=== PATIENT | female | born 1985 | race American Indian/Alaskan Native ===

== ENCOUNTER 2019-03-29 14:03 | Emergency (ER) | payer SELFPAY ==
[2019-03-29 17:47] VITALS: BP 142/92
[2019-03-29] MEDS ORDERED: NORCO 5/325 PO ONE (19:41)
[2019-03-29] MEDS ORDERED: BENADRYL PO ONE (19:42)
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
== END 2019-03-29 21:33 | disposition home or self-care (01) ==
LOC: ED 14:03
DX: H11.32 Conjunctival hemorrhage, left eye (principal); Z79.899 Other long term (current) drug therapy; Y04.0XXA Assault by unarmed brawl or fight, initial encounter; Y93.89 Activity, other specified; Y92.89 Other specified places as the place of occurrence of the external cause; Y99.8 Other external cause status
CPT/HCPCS: 70486